=== PATIENT | male | born 1975 | race Caucasian/White ===

== ENCOUNTER 2017-01-02 15:25 | Inpatient (IN) | payer OTHER ==
--- NOTE | ~2017-01-02 | OP ---
Record Of Operation [facility] [address] [place]. [address] NAME: MARIA DEL ROSARIO PRIETO : 71 STATUS : ADM IN PAT#: [id number] AGE: 41 ADM/REG DATE : 01/02/17 MR#: [id number] REPORT SERV DATE: 01/13/17 DICTATED BY: DAVID GOLDSTEIN DATE: 01/10/17 REPORT STATUS : Draft TRANSCRIBED BY: MODJackelin DATE: 01/10/17 DATE OF PROCEDURE: 01/10/2017 PREOPERATIVE DIAGNOSES: 1. Coronary artery disease with unstable angina. 2. Acute systolic heart failure (ejection fraction of 40%). 3. Chronic kidney disease. 4. Hypertension. 5. Hypothyroidism. 6. Hypercholesterolemia. 7. Tobacco abuse. 8. Obesity. POSTOPERATIVE DIAGNOSES: 1. Coronary artery disease with unstable angina. 2. Acute systolic heart failure (ejection fraction of 40%). 3. Chronic kidney disease. 4. Hypertension. 5. Hypothyroidism. 6. Hypercholesterolemia. 7. Tobacco abuse. 8. Obesity. PROCEDURE PERFORMED: 1. Urgent coronary artery bypass grafting x5. Left internal mammary artery was sequenced to the second diagonal, and left anterior descending, reverse saphenous vein graft placed to the first diagonal, reverse saphenous vein graft placed to the second obtuse marginal, right internal mammary artery graft placed to the posterior descending artery. 2. Bilateral internal mammary artery harvest. 3. Endoscopic vein harvest, saphenous vein from the right thigh. 4. Transesophageal echocardiography. ASSISTANTS: Twan Rush and Ysabel Prabhakar. ANESTHESIA: General with Dr. Landry. ACCOUNT MANAGER RELIEF: Estevan Gonzalez M.D. INDICATIONS: This is a 41-year-old, hypertensive gentleman with a long history of smoking, who presented to the emergency room at [facility] with anginal-type symptoms. He reports dyspnea with exertion with this event. He developed the pain 3 days before presenting to the emergency room. He was admitted to the hospital and medically stabilized. He did rule out for myocardial infarction. He underwent a stress test that was determined intermediate risk. He underwent a cardiac catheterization, which demonstrated significant three-vessel coronary artery disease. We were asked to see the patient possible urgent Record Of Operation [facility] [address] [facility]. [address] NAME: MARIA DEL ROSARIO PRIETO : 71 STATUS : ADM IN PAT#: [id number] AGE: 41 ADM/REG DATE : 01/02/17 MR#: [id number] REPORT SERV DATE: 01/13/17 DICTATED BY: DAVID GOLDSTEIN DATE: 01/10/17 REPORT STATUS : Draft TRANSCRIBED BY: MODL DATE: 01/10/17 revascularization. Unfortunately, the patient had developed elevated creatinine after his cardiac catheterization and the patient was given two days of hydration to allow the kidney for full recovery. We discussed possible coronary artery bypass grafting with him and his significant other and after discussing the operation, indication, risks, they wished to proceed. FINDINGS AT OPERATION: 1. Cross-clamp time 81 minute, total pump time 95 minutes. 2. LAD was less than 1.5 mm mildly diseased vessel. A 2.5 mm LEIGH was anastomosed to it and an end-to-side fashion with good runoff. 3. The second diagonal was 1.5 mm and mildly diseased. A 2 mm left internal mammary artery was anastomosed in a [id number] fashion with good runoff. 4. The first diagonal was 2 mm moderately diseased. A 4 mm RSVG was anastomosed to it with good runoff. 5. The second obtuse marginal was 2 mm and mildly diseased. A 4 mm RSVG was anastomosed to it with good runoff. 6. The posterior descending artery was 1.75 mm moderately diseased. A 3 mm skeletonized right internal mammary artery was anastomosed to it with good runoff. 7. The vein quality was good and all grafts did have good Doppler signal at the end of the case. PATHOLOGIC SPECIMENS: None. DESCRIPTION OF PROCEDURE: The patient was brought to the operating suite where general anesthesia was induced and airway secured with an endotracheal tube. Lines secured by anesthesia. Matthews catheter was placed. The patient's chest, abdomen, groin, and legs were prepped with Hibiclens and ChloraPrep, and draped with Ioban sterile sheets. SOLANGE probe was placed by Dr. Landry and examination carried out in my attendance. The saphenous vein was harvested from the right thigh using endoscopic technique. Briefly, the vein was cut directly down upon through a 2 cm incision placed at the medial aspect of the right knee. Then, using VasoView trocars, the vessel was dissected from the surrounding subcutaneous tissue and fat. The side branches were identified, ligated, divided with cautery. Once adequate length of vein had been dissected, a counter incision made up in the groin and the vein was ligated, divided, and brought through the knee incision. The vein quality was good. The leg was made hemostatic and closed in layers of absorbable suture and skin closed in subcuticular fashion. Next, a midline sternal incision was made and the sternum opened with a saw. The left hemithorax elevated and the endothoracic fascia was incised. Side branch of the VERÓNICA were clipped and divided. Once the left mammary artery was completely dissected, the chest tube was placed in the left pleural cavity. Show retractor was then reversed and the right hemithorax was elevated. The right internal mammary artery was then harvested as a skeletonized graft. Briefly, we then sized the endothoracic fascia directly underneath the VERÓNICA. Then, using Puskas scissors, this incision and the fascia was extended cranially and caudally for the length of the mammary to be used. The mammary was then carefully dissected Record Of Operation [address] [place]. [address] NAME: MARIA DEL ROSARIO PRIETO : 71 STATUS : ADM IN PAT#: [id number] AGE: 41 ADM/REG DATE : 01/02/17 MR#: [id number] REPORT SERV DATE: 01/13/17 DICTATED BY: DAVID GOLDSTEIN DATE: 01/10/17 REPORT STATUS : Draft TRANSCRIBED BY: MODJackelin DATE: 01/10/17 away and side branches of this vessel were clipped and then divided with cautery. Once adequate length of the right internal mammary artery been dissected and freed up. The patient anticoagulated with heparin and a chest tube placed in the right pleural cavity. Then, the distal end of the VERÓNICA was clipped and divided. The VERÓNICA was directly dilated with papaverine solution. Next, the Rodolfo retractor was placed in the pericardium over the innominate vein. The diaphragm was T'd and tacked to the side of the chest wall. Cannulation pursestring sutures were placed and cannulation was carried out in routine manner. A retrograde cardioplegia cannula was placed in the coronary sinus. When all was in readiness, the patient was placed on cardiopulmonary bypass. Distal targets were marked out on the heart as described in the findings. Then, a heart support was placed. The aorta was crossclamped. Initial dose cold blood cardioplegia solution was given in a combination of antegrade and retrograde fashion and then in a retrograde manner following proximal anastomoses. Following the first dose of cardioplegia, the heart was positioned for the obtuse marginal graft. Arteriotomy was made. The vein graft anastomosed it with 7-0 Prolene. The vein graft was measured back to the left side of the ascending aorta where it divided. We then positioned the heart for the first diagonal graft. Another arteriotomy was made. The vein graft was trimmed and anastomosed to it with 7-0 Prolene. This vein graft was measured back to the left side of the ascending aorta, where it was divided. Next, proximal ends of the two vein grafts were anastomosed to 4.5 mm punch aortotomy with 6-0 Prolene. Another dose of cardioplegia was given and the heart was positioned for the PDA graft. The arteriotomy was made. The skeletonized right internal mammary artery graft was brought into the pericardial space through a notch in the pericardium near the SVC. Care was taken to avoid injury to the phrenic nerve. The right mammary had adequate length to reach the PDA. Arteriotomy was made in the right mammary vessel. Then, a right mammary was anastomosed to the PDA in an end-to-side fashion with a running suture of 8-0 Prolene. Following completion of anastomosis, Doppler confirmed excellent flow through this graft. Another dose of cardioplegia was given and warming was begun. We then positioned the heart for the second diagonal graft. The left internal mammary artery brought into the chest through a notch in the pericardium over the pulmonary artery. The left mammary was planned for sequential grafting. Arteriotomy was made in the second diagonal, and corresponding arteriotomy made at the side of the vein of the VERÓNICA graft. Then, a vzzq-dp-bony left VERÓNICA anastomosis was performed to the second diagonal, with a running suture of 8-0 Prolene. The endothoracic fascia was tacked to the epicardium. Arteriotomy was then made in the LAD more distally. The end of the VERÓNICA graft was then opened and anastomosed to the LAD and an end-to side fashion with a running suture of 8-0 Prolene. The endothoracic fascia was then tacked to the epicardium here also. The patient was placed in Trendelenburg and a final dose of warm blood cardioplegia was given in a retrograde fashion. Ventricular and atrial pacing wires were placed. Following the last dose of cardioplegia and deairing of the aorta, the aortic cross clamp was removed. The distal and proximal anastomoses were inspected and made hemostatic. Record Of Operation [facility] [address] [place]. [address] NAME: MARIA DEL ROSARIO PRIETO : 71 STATUS : ADM IN PAT#: [id number] AGE: 41 ADM/REG DATE : 01/02/17 MR#: [id number] REPORT SERV DATE: 01/13/17 DICTATED BY: DAVID GOLDSTEIN DATE: 01/10/17 REPORT STATUS : Draft TRANSCRIBED BY: MODL DATE: 01/10/17 Doppler demonstrated good flow through the grafts. The patient resumed a sinus rhythm spontaneously and ventilation was begun. When the heart demonstrated good contractility, it was allowed to fill and eject. When deairing was completed, the patient was taken out of Trendelenburg. The ascending aortic vent removed and these pursestring sutures tied and reinforced. The patient was then weaned from cardiopulmonary bypass with minimal inotropic support. The venous cannulas were removed and these pursestring sutures tied. SOLANGE examination demonstrated continued good ventricular function with no significant valvular pathology. Protamine was administered by Anesthesia and following a period of hemodynamic stability, the aortic cannula was removed and these pursestring sutures tied and reinforced. The patient continued to do well and chest was irrigated copiously with saline. Meticulous hemostasis was obtained. Hemasorb was placed along the cut edge of the sternum. Once hemostasis was assured, the pericardium was draped over the anterior surface of the heart and tacked into position. Doppler demonstrated good flow through the grafts following protamine administration. Then, chest tube was placed and sternum reapproximated with 8 sternal wires. The clavipectoral fascia and linea alba closed #1 Stratafix. Subcutaneous tissue was closed and skin closed in subcuticular fashion. The patient tolerated the procedure well. There were no complications. Sponge and needle counts were correct. DISPOSITION: The patient was left intubated, sedated, and transported to the intensive care unit in a stable condition. RICHIE/ZORAN David Goldstein M.D. / [id number] CC: Estevan Gonzalez M.D.
--- NOTE | ~2017-01-02 | HP ---
History And Physical [place] [id number] [facility] [place]. [address] NAME: MARIA DEL ROSARIO PRIETO : 71 STATUS : ADM Michaela PAT#: [id number] AGE: 41 ADM/REG DATE : 01/02/17 MR#: [id number] REPORT SERV DATE: 01/03/17 DICTATED BY: DATE: REPORT STATUS : Draft TRANSCRIBED BY: MODL DATE: 01/03/17 DATE OF ADMISSION: 01/02/2017 PRIMARY CARE PROVIDER: The patient reports he goes to [facility] in [place] for primary care needs including his prescriptions. CHIEF COMPLAINT: Chest pain and pressure. HISTORY OF PRESENT ILLNESS: This is a 41-year-old white male with three days of substernal chest pain, 4/10 while sitting, an 8 to 9/10 with exertion he reports. He also reports during his chest pain and pressure events that he is experiencing shortness of breath, palpitations, dizziness, and diaphoresis. He also reports that he developed left arm pain and numbness yesterday occurring along with his chest pain and pressure. He reports all of his symptoms have currently resolved and he has no complaints. He denies any chest pain, shortness of breath, palpitations, nausea, vomiting, or diaphoresis. The patient denies any personal history of myocardial infarction, stroke, DVT, or pulmonary embolus. The patient denies any recent fever or chills. No syncopal episodes. He denies any PND or orthopnea. PAST MEDICAL HISTORY: The patient reports hypertension, hypothyroidism, asthma, questionable emphysema, Raynaud disease. PAST SURGICAL HISTORY: He denies having any. SOCIAL HISTORY: The patient reports to have a lot of odd jobs. 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 He reports to be , with one child. He is a current smoker and smokes one pack per day and has smoked that much for 30 years. He reports to drink one day a week, usually about 12 cans of beer. He has a history of illicit drug use, LSD, crack cocaine times a couple years; he quit in 1997. He does use marijuana daily and his last joint was yesterday and he has used marijuana for 20 years. FAMILY HISTORY: He denies his mother having any cardiovascular history. His father has a history of congestive heart failure. REVIEW OF SYSTEMS: A 14-point review of systems was performed and significant for HPI. No other contributory diagnosis identified. ALLERGIES: NO KNOWN ALLERGIES. HOME MEDICATIONS: ProAir HFA two puffs inhalation every 4 hours p.r.n., Synthroid 44 mcg p.o. at bedtime, lisinopril 10 mg p.o. at bedtime, Zantac 150 mg p.o. at bedtime, Spiriva HandiHaler 1 capsule inhalation at bedtime. PHYSICAL EXAMINATION: History And Physical [address] [address] NAME: MARIA DEL ROSARIO PRIETO : 71 STATUS : ADM Michaela PAT#: [id number] AGE: 41 ADM/REG DATE : 01/02/17 MR#: [id number] REPORT SERV DATE: 01/03/17 DICTATED BY: DATE: REPORT STATUS : Draft TRANSCRIBED BY: ZORAN DATE: 01/03/17 VITAL SIGNS: Blood pressure 135/77, pulse 74, temperature 97.7, O2 saturation 96% on room air, respirations 18. GENERAL: Cooperative, in no apparent distress. HEENT: Head normocephalic, anicteric. Normal EOM. PERRLA. No xanthelasma. Nares patent. Moist mucous membranes. NECK: Trachea midline. No thyromegaly, JVD or bruits. RESPIRATORY: Clear to auscultation bilaterally anterior and posterior. Respirations even and unlabored. No wheezes, rhonchi or crackles. CARDIOVASCULAR: Regular rate and rhythm. No murmur, rub or gallop appreciated. No chest wall tenderness to palpation. ABDOMEN: Soft, nontender, nondistended, normal bowel sounds auscultated throughout. No masses or organomegaly. EXTREMITIES: No peripheral edema. DP/PT and radial pulses palpable bilaterally. No clubbing or cyanosis. SKIN: Warm, dry and intact. Normal turgor. No pallor or cyanosis. NEURO/PSYCH: Alert, oriented x3 with no acute distress. Affect appropriate to current situation. LABORATORY DATA: Troponin x3 less than 0.02. Sodium 140, potassium 3.6, BUN 16, creatinine 1.34, GFR 75, glucose 94, calcium 9.3, magnesium 2.2. White blood cell 7.8, hemoglobin 15.0, hematocrit 43.9, platelets 215. INR 1.0. PA and lateral chest x-ray, no acute cardiopulmonary processes radiographically evident. CTA of the chest shows lungs clear of acute infiltrate. There is no PE. There was some minor emphysematous changes in the upper lung pagan. The coronary system is not calcified. Ascending and descending thoracic aorta normal. EKG on 01/03/2017 showed sinus rhythm at 71 with a left axis, borderline RWP. nuclear monitoring technician shows sinus rhythm at 68, no ectopy. ASSESSMENT AND PLAN: 1. Substernal chest pain. The patient denies any chest pain. Currently, troponins x3 have been negative. He denies any arm pain, numbness. His cardiac risk factor is hypertension. We will keep the patient n.p.o. and plan an MPI today. If the stress test shows no ischemia or low risk, RN may discharge the patient home. If anything suggestive of ischemia, Cardiology referral will be initiated. 2. Hypertension, appears to be stable. Blood pressure 135/77. The patient is on the lisinopril. We will currently decrease it to 5 mg due to increased creatinine of 1.34. 3. Renal insufficiency. I have discussed with the patient his increased creatinine and lisinopril intake, the risks and benefits of taking lisinopril. I have instructed the patient to follow up with his PCP, whom he reports is from [facility]. He uses the [facility] for PCP and medication purposes. I have encouraged him to discuss further medication and his increased creatinine with his PCP there. 4. Hypothyroidism. I have discussed the importance of continued medication and getting his TSH checked by his PCP. The patient states that he had stopped his blood pressure and thyroid medications for 3 months and restarted about 2 weeks ago because of not History And Physical [address] [address] NAME: MARIA DEL ROSARIO PRIETO : 71 STATUS : ADM Michaela PAT#: [id number] AGE: 41 ADM/REG DATE : 01/02/17 MR#: [id number] REPORT SERV DATE: 01/03/17 DICTATED BY: DATE: REPORT STATUS : Draft TRANSCRIBED BY: MODL DATE: 01/03/17 having insurance. I have discussed the importance of taking medications as prescribed and attempting to see his PCP as scheduled. 5. Asthma. The patient denies any shortness of breath. Appears to be stable. He has his breathing treatments available he reports and I have discussed him following up with his PCP. EKS/MODL Gia Hall APN / [id number] CC: Kinsey Harden, JOBY, CAMERA REPAIR TECHNICIAN-BC
--- NOTE | ~2017-01-02 | DS ---
Discharge Summary [facility] [address] [place]. [address] NAME: MARIA DEL ROSARIO PRIETO : 71 STATUS : DIS IN PAT#: [id number] AGE: 41 ADM/REG DATE : 01/02/17 MR#: [id number] REPORT SERV DATE: 01/27/17 DICTATED BY: ESTEVAN MANCERA DATE: 01/27/17 REPORT STATUS : Draft TRANSCRIBED BY: ZORAN DATE: 01/27/17 Data Collection from hospitalization DISCHARGE DIAGNOSES: 1. Unstable angina. 2. Coronary artery disease, status post coronary artery bypass grafting. 3. Renal insufficiency. 4. Hypothyroidism. 5. Asthma. 6. Hypertension. 7. Hypercholesterolemia. 8. History of Raynaud's disease. 9. Marijuana use. 10.Tobacco use. CONSULTATIONS: 1. Efren Goldstein M.D. 2. Theresa Portillo. PROCEDURES: 1. Cardiac catheterization on 01/03/2017. 2. Urgent coronary artery bypass grafting x5 with LEIGH to the second diagonal and left anterior descending, reverse saphenous vein graft placed to the first diagonal, reverse saphenous vein graft placed to the second obtuse marginal, right internal mammary artery graft placed to the posterior descending artery, bilateral internal mammary artery harvest, endoscopic vein harvest of the saphenous vein from the right thigh. Transesophageal echocardiography on 01/10/2017. 3. CTA of the chest on 01/02/2017. 4. Myocardial perfusion imaging study on 01/03/2017. DISCHARGE MEDICATIONS: Lipitor 40 mg at bedtime, Coreg 6.25 mg twice a day, Plavix 75 mg daily, [place] 10/325 one tablet with every four hours as needed, Synthroid 44 mcg at bedtime, Prinivil 5 mg daily, Spiriva one capsule via inhaler at bedtime. CONDITION AT DISCHARGE: Stable. DISPOSITION: The patient was discharged home on a low-sodium, low-cholesterol, cardiac diet with activities as instructed. He would follow up with me on 02/12/2017, he would follow up with Reagan Oakley on 02/20/2017, he would follow up at [facility] one week following discharge. HOSPITAL COURSE: This is a 41-year-old man, who presented with about three days of substernal chest pain that was 4/10 while sitting and to 9/10 with exertion. He reports that he was to [facility] for primary care including his prescriptions. He reported during his chest pain and pressure events that he was experiencing shortness of breath, palpitations, dizziness, and diaphoresis. He also reported that he had some left arm pain and numbness that occurred along with his chest pain and pressure. He said all these symptoms had currently resolved at this time and he had no new complaints. He denied Discharge Summary [address] [place]. [address] NAME: MARIA DEL ROSARIO PRIETO : 71 STATUS : DIS IN PAT#: [id number] AGE: 41 ADM/REG DATE : 01/02/17 MR#: [id number] REPORT SERV DATE: 01/27/17 DICTATED BY: ESTEVAN MANCERA DATE: 01/27/17 REPORT STATUS : Draft TRANSCRIBED BY: ZORAN DATE: 01/27/17 any chest pain, shortness of breath, palpitations, nausea, vomiting, or diaphoresis at this time. He denies any personal history of myocardial infarction, stroke, or pulmonary embolus. A CTA of the chest showed lungs that are clear of acute infiltrate. There was no pulmonary embolus. There was some minor emphysematous changes in the upper lung pagan. The ascending and descending thoracic aorta were normal. Troponin x3 was less than 0.02. INR level was 1.0. Creatinine level was 1.34. He was admitted to the hospital at this time for further evaluation and treatment. Upon admission, he was held n.p.o. It was felt that he may need to undergo a myocardial perfusion imaging study, but the stress test showed no ischemia or low risk. He may be discharged home if there was anything suggestive of ischemia, then a Cardiology referral would be made. The patient's blood pressure appeared to be stable at this time. He was on lisinopril, this dose was currently decreased because of his elevated creatinine. He does have renal insufficiency. The patient was instructed to follow up with his primary care physician, whom he reports is from a [facility] physician. The patient also has hypothyroidism. We discussed the importance of continued medication and getting his TSH checked by his primary care physician. The patient said that he had stopped his blood pressure and thyroid medications for three months and then started it about two weeks prior to this admission because of not having insurance. The importance of taking his medications as prescribed and attempting to see his primary care physician as scheduled were discussed. His asthma appeared to be stable. The following day, a myocardial perfusion imaging study was performed. This demonstrated no ischemia. He had 7/10 chest tightness with stress. Post infusion, left ventricular ejection fraction was 45%. It was felt that the patient would need to undergo a cardiac catheterization. He was taken to the cardiac cath lab tech by Dr. Wahl where he underwent the above-mentioned procedure. He tolerated this well. There were no complications. Following this, he was seen by Dr. Efren Goldstein. His coronary arteriogram had demonstrated severe three-vessel coronary artery disease with lesions in the proximal, mid, and distal right coronary artery, left anterior descending, and first and second diagonal branches, and circumflex arteries. It was felt that he would need to undergo coronary artery bypass grafting. An echocardiogram was performed. On 01/04/2017, he had no further chest pain or shortness of breath. Echocardiogram was going to be checked. Norvasc was added. On 01/05/2017, his ejection fraction was 40% and there was global hypokinesis on the echocardiogram. Plan to be made for the coronary artery bypass graft procedure to be performed the following week. The patient was seen by Theresa Portillo regarding acute kidney injury versus chronic kidney disease. Creatinine had risen from 1.3 on the day of admission to 1.6. He did not receive any nephrotoxins, but he did receive two days of dye consecutively. He did have good urine output. He was felt to have acute kidney injury versus chronic kidney disease. Urine studies were going to be checked. IV fluids were being given. It was discussed with the patient that he had a mild-to- moderate risk of acute renal failure with bypass that was being planned. On 01/08/2017, creatinine level decreased to 1.4 with IV fluids. Plans were being made to proceed with surgery. He had no chest pain or shortness of breath. On 01/10/2017, the patient was taken to the operating room where he underwent the above-mentioned procedure. He tolerated this well. There were no complications. On postop day #1, he had been extubated and he had normal work of breathing. Pressors were being weaned as tolerated. The patient was felt to have stage 3 chronic kidney disease. Electrolyte protocol was in Discharge Summary [address] [place]. [address] NAME: MARIA DEL ROSARIO PRIETO : 71 STATUS : DIS IN PAT#: [id number] AGE: 41 ADM/REG DATE : 01/02/17 MR#: [id number] REPORT SERV DATE: 01/27/17 DICTATED BY: ESTEVAN MANCERA DATE: 01/27/17 REPORT STATUS : Draft TRANSCRIBED BY: MODL DATE: 01/27/17 place. Creatinine level was 1.17. We encouraged him to increase his mobility. His white count had increased to 22.6. O2 was being weaned. The Matthews catheter was also removed. He was encouraged to increase his activity. Chest x-ray showed left basilar atelectasis. On 01/13/2017, he was beginning to ambulate. His lungs were clear. He was in a normal sinus rhythm. Lopressor was changed to Coreg. He was evaluated by Physical Therapy. He had only trace lower extremity edema. He was encouraged to use incentive spirometry and EzPAP treatment. He was ambulating in the manzano. Chest tubes were removed. The next day, discharge planning was performed. His incisions looked okay. Lisinopril was added to his regimen. On 01/15/2017, he had no chest pain or shortness of breath. He said he felt well. He was afebrile. Discharge instructions were given. Due to his improved and stable condition, he was discharged home with the above-stated instructions. Information collected by: Daisy Fatima I submit the above information as my discharge summary. TG/ZORAN Estevan Mancera M.D. / [id number] CC: Cristy Odell FNP James Zellner, M.D.
--- NOTE | ~2017-01-02 | CN ---
Consultation Report [facility] [address] [place]. [address] NAME: MARIA DEL ROSARIO PRIETO : 71 STATUS : ADM IN PAT#: [id number] AGE: 41 ADM/REG DATE : 01/02/17 MR#: [id number] REPORT SERV DATE: 01/06/17 DICTATED BY: DAVID GOLDSTEIN DATE: 01/06/17 REPORT STATUS : Draft TRANSCRIBED BY: MODJackelin DATE: 01/06/17 DATE OF CONSULTATION: 01/03/2017 REASON FOR CONSULTATION: Coronary artery disease, consideration for coronary artery bypass grafting. CHIEF COMPLAINT: I had pain in my chest and left arm and shoulder. HISTORY OF PRESENT ILLNESS: This is a 41-year-old gentleman, smoker since age 13, who also smokes cigars and marijuana cigarettes. He reports that about three days prior to admission, he began to have some discomfort in his chest and left arm that was intermittent, waxing and waning. This persisted and worsened, and he then came to the emergency department. He also had associated shortness of breath, dizziness, diaphoresis, and palpitations. In the emergency department, his EKG showed normal sinus rhythm, and troponin I was not elevated. He did undergo myocardial perfusion imaging with SPECT, and this was positive for ischemia and graded intermediate-risk test. Followup coronary arteriogram on Friday demonstrated severe three-vessel coronary artery disease with lesions in the proximal, mid, and distal right coronary arteries, left anterior descending, and first and second diagonal branches, and circumflex arteries. We were asked to see for a possible urgent coronary artery bypass grafting and this was discussed with the patient and his in the room this morning. PRIOR MEDICAL HISTORY: Hypertension, hypothyroidism, asthma, possible emphysema, Raynaud disease, and cigarette smoking. SURGICAL HISTORY: None. ALLERGIES: NONE KNOWN. MEDICATIONS: Include ProAir HFA inhaler two puffs every 4 hours p.r.n., Synthroid 44 mcg p.o. at bedtime, Prinivil 10 mg p.o. at bedtime, Zantac 150 mg p.o. at bedtime, and Spiriva HandiHaler 1 cap inhaled at bedtime daily. FAMILY HISTORY: Father with congestive heart failure, mother without heart problems. SOCIAL HISTORY: He is , employed as a b2b sales executive. He smokes approximately a pack per day and has smoked since the age of 13. He uses marijuana cigarettes daily and he occasionally drinks beer. REVIEW OF SYSTEMS: Essentially negative other than that listed above. Specifically, he denies any history of stroke, TIA, or bleeding problems. Consultation Report [facility] [id number] [place]. [address] NAME: MARIA DEL ROSARIO PRIETO : 71 STATUS : ADM IN PAT#: [id number] AGE: 41 ADM/REG DATE : 01/02/17 MR#: [id number] REPORT SERV DATE: 01/06/17 DICTATED BY: DAVID GOLDSTEIN DATE: 01/06/17 REPORT STATUS : Draft TRANSCRIBED BY: ZORAN DATE: 01/06/17 PHYSICAL EXAMINATION: GENERAL: He is a pleasant white male, in no acute distress. VITAL SIGNS: His weight is 98.42 kg, height 185.42 cm. Blood pressure is 116/75; temperature 97.8; pulse 74 and regular; respirations 18, regular and unlabored; saturation 93% on room air. HEENT: Normocephalic, atraumatic. Pupils are equal, round, and reactive to light and accommodation. Sclerae are clear, conjunctivae pink. Oral and buccal mucosa are stained brown, no lesions or masses. Teeth are in good condition. Mallampati class 3 airway. NECK: Supple, no restricted range of motion, no carotid bruits, no jugular venous distention. CHEST: Clear to auscultation. No use of accessory muscles. No chest wall tenderness, no deformity. BREASTS: Not examined. CV: Regular rate and rhythm without murmur or rub. He has palpable and symmetric central and peripheral pulses, no clubbing, no cyanosis, no edema, no lower extremity varicosities. ABDOMEN: Soft, nontender, with normoactive bowel sounds. No hepatosplenomegaly. /RECTAL: Declined. MUSCULOSKELETAL: No kyphoscoliosis, no asymmetry. NEUROLOGIC: He is alert, oriented to day, date, place, and situation. Speech is clear and fluent, no focal deficits, no tremors. SKIN, HAIR, AND NAILS: Good hygiene; no lesions, masses, or rashes. DATA: His coronary arteriogram which I reviewed today showing severe three-vessel flow- limiting coronary artery disease. His EKG shows normal sinus rhythm. Echocardiogram shows ejection fraction 40%, no significant valvulopathy. His labs show WBCs 9.2, hemoglobin 16.5 g, hematocrit 46.9% platelets 219,000. Electrolyte profile: Sodium is 137, potassium 4.3, chloride 101, CO2 of 27, BUN 17, and creatinine is elevated at 1.43. IMPRESSION: Three-vessel flow-limiting coronary artery disease in a patient who presented with severe chest pain. In reviewing his films, he would be a candidate for surgical revascularization. We talked with him about that today, the indications, benefits, and serious risks of surgery including things like bleeding, infection, blood transfusions and their attendant risks, damage to the kidneys including kidney failure and dialysis, damage to the liver or the lungs, heart attack, stroke, abnormal heart rhythm, mediastinitis, and even . The patient indicates his understanding and is willing to proceed. Using Society of Thoracic Surgeons database for risk prediction, risk of mortality was predicted 0.795%, any morbidity or mortality of 12.439%, this was shared with the patient and his family. PLAN: Surgery later this admission, and appreciate the opportunity to participate in this gentleman's care. DICTATED BY: Reagan Oakley N.P. Consultation Report [address] [address] NAME: MARIA DEL ROSARIO PRIETO : 71 STATUS : ADM IN [facility]#: [id number] AGE: 41 ADM/REG DATE : 01/02/17 MR#: [id number] REPORT SERV DATE: 01/06/17 DICTATED BY: DAVID GOLDSTEIN DATE: 01/06/17 REPORT STATUS : Draft TRANSCRIBED BY: ZORAN DATE: 01/06/17 MSJackelin/ZORAN David Goldstein M.D. / [id number] CC: Cristy Odell
--- NOTE | ~2017-01-02 | CN ---
Consultation Report [facility] [address] [place]. [address] NAME: MARIA DEL ROSARIO CHATMAN : 71 STATUS : ADM IN PAT#: [id number] AGE: 41 ADM/REG DATE : 01/02/17 MR#: [id number] REPORT SERV DATE: 01/07/17 DICTATED BY: DATE: REPORT STATUS : Draft TRANSCRIBED BY: MODL DATE: 01/07/17 CONSULTATION DATE OF CONSULTATION: REASON FOR CONSULTATION: Acute kidney injury versus CKD. HISTORY OF PRESENT ILLNESS: Mr. Chatman is a 41-year-old white male, who denies any history of kidney disease in the past. He does have a history of kidney stones. He has a history of hypertension, this has been well controlled on his usual medicines at home. He presented to the hospital with chest pain had a CTA of the chest one day, followed by heart catheterization the next day, was found to have multivessel coronary artery disease, in need of bypass. His creatinine has gone from 1.3 on admission to 1.4 to 1.6, and we were asked to see him with our plans for bypass tomorrow. He denies any dysuria or hematuria. No problems with edema. No shortness of breath, chest pain, tightness, or pressure. I do not see any nephrotoxins on his medications, but he did get the two days of dye consecutively. He has a good urine output. PAST MEDICAL HISTORY: Now includes coronary artery disease, but positive for hypertension, hypothyroidism, asthma, tobacco abuse, Raynaud, and kidney stones. FAMILY MEDICAL HISTORY: Coronary artery disease. No kidney disease. ALLERGIES: NONE. MEDICATIONS: Ascorbic acid, atorvastatin, amiodarone, Coreg, Pepcid, levothyroxine, nicotine patch, tiotropium, and zinc. SOCIAL HISTORY: He is . Smokes a pack of cigarettes per day. Occasional alcohol and daily marijuana. REVIEW OF SYSTEMS: 12-point review of systems obtained and negative with the exception that in HPI. PHYSICAL EXAMINATION: VITAL SIGNS: Temp 97.3, blood pressure 121/77, pulse 81, respiratory rate 18, O2 saturation is 95%. GENERAL: This is a pleasant, cooperative, white male. He is awake, alert, and oriented x3. No acute distress. Answers questions appropriately. HEENT: Normocephalic, atraumatic. Conjunctivae clear. Sclerae anicteric. Pupils are equal and round. Oral mucosa is moist. NECK: Supple. Carotids are without bruits. Neck veins flat. No lymphadenopathy. LUNGS: Respirations are even and unlabored. Breath sounds are clear to auscultation. HEART: Rate is regular. No murmur, rub, or gallop. Consultation Report [facility] [id number] [place]. [address] NAME: MARIA DEL ROSARIO CHATMAN : 71 STATUS : ADM IN [facility]#: [id number] AGE: 41 ADM/REG DATE : 01/02/17 MR#: [id number] REPORT SERV DATE: 01/07/17 DICTATED BY: DATE: REPORT STATUS : Draft TRANSCRIBED BY: MODL DATE: 01/07/17 ABDOMEN: Soft and nontender. Bowel sounds active. No masses or hepatosplenomegaly. No bruits. No CVA tenderness. BACK: Within normal limits. EXTREMITIES: No edema, cyanosis, or clubbing. SKIN: Warm, dry, and intact. No unusual rashes or skin lesions. NEURO: No focal deficits. Mood and affect, pleasant appropriate. PERTINENT LABS AND X-RAYS: Sodium 137, potassium 4.4, chloride 102, CO2 of 27, BUN of 17, creatinine 1.6, calcium of 9.5. WBCs 9, H and H of 16 and 46, platelets 219,000. IMPRESSION: 1. Acute kidney injury versus chronic kidney disease. 2. Coronary artery disease. 3. Hypertension. 4. Tobacco abuse. 5. History of kidney stones. PLAN: Check urine studies. I agree with IV fluids. We will follow labs and I's and O's. Discussed with him [id number] risk of acute renal failure with bypass and that is being planned for tomorrow. We will follow along with you. Thank you for the consultation. DIANA/ZORAN EMERALD Rahman / [id number] CC: Estevan Gonzalez M.D.
[2017-01-02 16:52] LABS: BASOPHILS 0.9 %; BASOPHILS ABSOLUTE 0.07 10/3/uL (0.0-0.16); EOSINOPHILS 1.5 %; EOSINOPHILS ABSOLUTE 0.12 10/3/uL (0.0-0.53); ER CBC TAT 0 Hrs 07 Mins; HEMATOCRIT 43.9 % (40.0-51.0); IMMATURE GRANULOCYTES 0.1 %; IMMATURE GRANULOCYTES ABSOLUTE 0.01 10/3/uL (0.0-0.11); LYMPHOCYTES 29.7 %; LYMPHOCYTES ABSOLUTE 2.31 10/3/uL (0.67-4.30); MEAN CORPUS HGB CONC 34.2 g/dL (32.0-36.0); MEAN CORPUSCULAR HEMOGLOB 31.5 pg (26.0-34.0); MEAN PLATELET VOLUME 9.2 fL (9.2-13.0); MONOCYTES 7.2 %; MONOCYTES ABSOLUTE 0.56 10/3/uL (0.21-1.20); NEUTROPHILS 60.6 %; PLATELET COUNT 215 10/3/uL (150-400); RBC DISTRIBUTION WIDTH 13.8 % (12.0-16.0); RED CELL COUNT 4.76 10/6/uL (4.7-6.1); WHITE BLOOD CELLS 7.8 10/3/uL (4.5-10.5)
[2017-01-02 16:53] LABS: MANUAL DIFF NO %; MEAN CORPUSCULAR VOLUME 92.2 fL (80-100)
[2017-01-02 16:56] LABS: PARTIAL THROMBO TIME 25.2 SEC (22.5-37.2); PROTIME (NOT ORD) 13.1 SEC (12.0-14.5)
[2017-01-02 17:06] LABS: BUN (BLOOD UREA NITROGEN) 16 MG/DL (6-23); CALCIUM, SERUM 9.3 MG/DL (8.5-10.4); CHEST PAIN PROFILE TAT 0 Hrs 21 Mins; CHLORIDE, SERUM 105 MMOL/L (96-112); CO2 (CARBON DIOXIDE) 30 MMOL/L (24-34); CREATININE 1.34 MG/DL (0.70-1.30); GFR AFRICAN AMERICAN 75 ML/MIN (>=60); GFR NON AFRICAN AMERICAN 64 ML/MIN (>=60); GLUCOSE, SERUM 94 MG/DL (60-99); POTASSIUM, SERUM 3.6 MMOL/L (3.5-5.3); SODIUM, SERUM 140 MMOL/L (135-148); TROPONIN I <0.02 NG/ML (<0.05)
[2017-01-02] MEDS ORDERED: PRIN10 PO (18:31)
[2017-01-02] MEDS ORDERED: SPIRIVA INH (18:31)
[2017-01-02] MEDS ORDERED: PROAIR HFA INH (18:31)
[2017-01-02] MEDS ORDERED: ZANTAC150 MG PO (18:31)
[2017-01-02] MEDS ORDERED: SYN88 PO (18:31)
[2017-01-06 02:10] LABS: BASOPHILS ABSOLUTE 0.09 10/3/uL (0.0-0.16); EOSINOPHILS 3.1 %; EOSINOPHILS ABSOLUTE 0.29 10/3/uL (0.0-0.53); HEMATOCRIT 46.9 % (40.0-51.0); HEMOGLOBIN 16.5 g/dL (13.6-17.8); IMMATURE GRANULOCYTES 0.2 %; IMMATURE GRANULOCYTES ABSOLUTE 0.02 10/3/uL (0.0-0.11); LYMPHOCYTES ABSOLUTE 3.32 10/3/uL (0.67-4.30); MEAN CORPUS HGB CONC 35.2 g/dL (32.0-36.0); MEAN CORPUSCULAR HEMOGLOB 32.1 pg (26.0-34.0); MEAN CORPUSCULAR VOLUME 91.2 fL (80-100); MEAN PLATELET VOLUME 9.6 fL (9.2-13.0); MONOCYTES 7.3 %; MONOCYTES ABSOLUTE 0.67 10/3/uL (0.21-1.20); NEUTROPHILS 52.4 %; NEUTROPHILS ABSOLUTE 4.84 10/3/uL (2.02-8.40); PLATELET COUNT 219 10/3/uL (150-400); RBC DISTRIBUTION WIDTH 13.7 % (12.0-16.0); RED CELL COUNT 5.14 10/6/uL (4.7-6.1); WHITE BLOOD CELLS 9.2 10/3/uL (4.5-10.5)
[2017-01-06 02:11] LABS: MANUAL DIFF NO %
[2017-01-06 02:35] LABS: BUN (BLOOD UREA NITROGEN) 17 MG/DL (6-23); CALCIUM, SERUM 9.3 MG/DL (8.5-10.4); CHLORIDE, SERUM 101 MMOL/L (96-112); CO2 (CARBON DIOXIDE) 27 MMOL/L (24-34); CREATININE 1.43 MG/DL (0.70-1.30); GFR AFRICAN AMERICAN 69 ML/MIN (>=60); GFR NON AFRICAN AMERICAN 60 ML/MIN (>=60); GLUCOSE, SERUM 100 MG/DL (60-99); POTASSIUM, SERUM 4.3 MMOL/L (3.5-5.3); SODIUM, SERUM 137 MMOL/L (135-148)
[2017-01-07 05:59] LABS: BUN (BLOOD UREA NITROGEN) 17 MG/DL (6-23); CALCIUM, SERUM 9.6 MG/DL (8.5-10.4); CHLORIDE, SERUM 102 MMOL/L (96-112); CO2 (CARBON DIOXIDE) 29 MMOL/L (24-34); CREATININE 1.61 MG/DL (0.70-1.30); GFR AFRICAN AMERICAN 60 ML/MIN (>=60); GFR NON AFRICAN AMERICAN 52 ML/MIN (>=60); GLUCOSE, SERUM 106 MG/DL (60-99); POTASSIUM, SERUM 4.4 MMOL/L (3.5-5.3); SODIUM, SERUM 137 MMOL/L (135-148)
[2017-01-07 16:02] LABS: ASCORBIC ACID (UR NOT ORDER) 40 (NEG); BILIRUBIN, URINE NEGATIVE (NEG); KETONE, URINE NEGATIVE (NEG); LEUKOCYTE ESTERASE(NOT OR NEG (NEG); WBC (NOT ORDERED) (RFLEX) < 1 (0-5)
[2017-01-08 04:28] LABS: ALLENS TEST Pos; BE (BASE EXCESS) 2.6 MEQ/L (0 +/- 2.5); CARBOXYHEMOGLOBIN 0.8 % (0-3); HCO3 (ACTUAL BICARBONATE) 26.5 MEQ/L (23-27); INSTRUMENT SERIAL # 8083; METHEMOGLOBIN 0.3 % (0-3); O2 CONTENT 21.3 VOL% (18-24); OPERATOR ID 35390; PCO2 (CO2 TENSION) 39 MMHG (35-45); PO2 (O2 TENSION) 78 MMHG (79-93); SAMPLE Arterial; pH 7.45 (7.37-7.43)
[2017-01-08 05:21] LABS: BASOPHILS 0.7 %; HEMATOCRIT 48.6 % (40.0-51.0); HEMOGLOBIN 16.8 g/dL (13.6-17.8); IMMATURE GRANULOCYTES 0.4 %; IMMATURE GRANULOCYTES ABSOLUTE 0.06 10/3/uL (0.0-0.11); LYMPHOCYTES 23.1 %; LYMPHOCYTES ABSOLUTE 3.53 10/3/uL (0.67-4.30); MEAN CORPUS HGB CONC 34.6 g/dL (32.0-36.0); MEAN CORPUSCULAR HEMOGLOB 31.8 pg (26.0-34.0); MEAN PLATELET VOLUME 9.8 fL (9.2-13.0); MONOCYTES ABSOLUTE 1.22 10/3/uL (0.21-1.20); NEUTROPHILS 65.8 %; NEUTROPHILS ABSOLUTE 10.05 10/3/uL (2.02-8.40); PLATELET COUNT 235 10/3/uL (150-400); RBC DISTRIBUTION WIDTH 13.5 % (12.0-16.0); RED CELL COUNT 5.28 10/6/uL (4.7-6.1)
[2017-01-08 05:22] LABS: PROTIME (NOT ORD) 13.2 SEC (12.0-14.5)
[2017-01-08 05:26] LABS: MANUAL DIFF NO %; WHITE BLOOD CELLS 15.3 10/3/uL (4.5-10.5)
[2017-01-08 05:38] LABS: % IRON SAT 14 % (20-50); ALBUMIN 3.9 G/DL (3.5-5.0); ALKALINE PHOSPHATASE 72 U/L (45-117); BUN (BLOOD UREA NITROGEN) 16 MG/DL (6-23); CALCIUM, SERUM 9.6 MG/DL (8.5-10.4); CHLORIDE, SERUM 104 MMOL/L (96-112); CO2 (CARBON DIOXIDE) 30 MMOL/L (24-34); CREATININE 1.44 MG/DL (0.70-1.30); GFR AFRICAN AMERICAN 68 ML/MIN (>=60); GFR NON AFRICAN AMERICAN 59 ML/MIN (>=60); GLOBULIN 3.8 G/DL (2.5-4.1); IRON BINDING CAPACITY 442 MCG/DL (250-450); IRON, SERUM 61 MCG/DL (35-150); PHOSPHORUS, SERUM 4.3 MG/DL (2.5-4.5); POTASSIUM, SERUM 4.3 MMOL/L (3.5-5.3); SGOT(AST) 19 U/L (5-40); SGPT(ALT) 41 U/L (5-65); SODIUM, SERUM 138 MMOL/L (135-148); TOTAL BILIRUBIN 0.4 MG/DL (0-1.2); TOTAL PROTEIN 7.7 G/DL (6.0-8.5)
[2017-01-08 05:40] LABS: DIRECT BILIRUBIN < 0.1 MG/DL (0.0-0.4); GLUCOSE, SERUM 82 MG/DL (60-99); INDIRECT BILIRUBIN(NOT ORDER) 0.3 MG/DL (0.1-0.9)
[2017-01-09 06:57] LABS: ALBUMIN 3.4 G/DL (3.5-5.0); BUN (BLOOD UREA NITROGEN) 14 MG/DL (6-23); CHLORIDE, SERUM 105 MMOL/L (96-112); CO2 (CARBON DIOXIDE) 28 MMOL/L (24-34); GFR AFRICAN AMERICAN 71 ML/MIN (>=60); GFR NON AFRICAN AMERICAN 61 ML/MIN (>=60); GLUCOSE, SERUM 82 MG/DL (60-99); PHOSPHORUS, SERUM 4.4 MG/DL (2.5-4.5); POTASSIUM, SERUM 4.2 MMOL/L (3.5-5.3); SODIUM, SERUM 141 MMOL/L (135-148)
[2017-01-09 09:05] LABS: BASOPHILS 0.6 %; BASOPHILS ABSOLUTE 0.07 10/3/uL (0.0-0.16); EOSINOPHILS 2.7 %; HEMATOCRIT 41.9 % (40.0-51.0); HEMOGLOBIN 14.3 g/dL (13.6-17.8); IMMATURE GRANULOCYTES 0.2 %; IMMATURE GRANULOCYTES ABSOLUTE 0.02 10/3/uL (0.0-0.11); LYMPHOCYTES 22.4 %; LYMPHOCYTES ABSOLUTE 2.49 10/3/uL (0.67-4.30); MANUAL DIFF NO %; MEAN CORPUS HGB CONC 34.1 g/dL (32.0-36.0); MEAN CORPUSCULAR HEMOGLOB 31.4 pg (26.0-34.0); MEAN CORPUSCULAR VOLUME 91.9 fL (80-100); MEAN PLATELET VOLUME 9.9 fL (9.2-13.0); MONOCYTES ABSOLUTE 0.89 10/3/uL (0.21-1.20); NEUTROPHILS 66.1 %; NEUTROPHILS ABSOLUTE 7.33 10/3/uL (2.02-8.40); PLATELET COUNT 208 10/3/uL (150-400); RBC DISTRIBUTION WIDTH 14.1 % (12.0-16.0); RED CELL COUNT 4.56 10/6/uL (4.7-6.1); WHITE BLOOD CELLS 11.1 10/3/uL (4.5-10.5)
[2017-01-10 03:28] LABS: BASOPHILS 0.8 %; BASOPHILS ABSOLUTE 0.09 10/3/uL (0.0-0.16); EOSINOPHILS 2.9 %; EOSINOPHILS ABSOLUTE 0.34 10/3/uL (0.0-0.53); HEMATOCRIT 41.8 % (40.0-51.0); HEMOGLOBIN 14.4 g/dL (13.6-17.8); IMMATURE GRANULOCYTES 0.2 %; IMMATURE GRANULOCYTES ABSOLUTE 0.02 10/3/uL (0.0-0.11); LYMPHOCYTES 29.7 %; LYMPHOCYTES ABSOLUTE 3.43 10/3/uL (0.67-4.30); MEAN CORPUS HGB CONC 34.4 g/dL (32.0-36.0); MEAN CORPUSCULAR HEMOGLOB 31.7 pg (26.0-34.0); MEAN CORPUSCULAR VOLUME 92.1 fL (80-100); MEAN PLATELET VOLUME 9.6 fL (9.2-13.0); MONOCYTES 8.8 %; MONOCYTES ABSOLUTE 1.02 10/3/uL (0.21-1.20); NEUTROPHILS 57.6 %; NEUTROPHILS ABSOLUTE 6.64 10/3/uL (2.02-8.40); PLATELET COUNT 209 10/3/uL (150-400); RBC DISTRIBUTION WIDTH 13.6 % (12.0-16.0); RED CELL COUNT 4.54 10/6/uL (4.7-6.1); WHITE BLOOD CELLS 11.5 10/3/uL (4.5-10.5)
[2017-01-10 03:29] LABS: MANUAL DIFF NO %
[2017-01-10 03:35] LABS: INTERNATIONAL NORMAL RATI 1.2 UNITS (-); PROTIME (NOT ORD) 14.6 SEC (12.0-14.5)
[2017-01-10 03:40] LABS: PARTIAL THROMBO TIME 114.1 SEC (22.5-37.2)
[2017-01-10 03:45] LABS: ALBUMIN 3.3 G/DL (3.5-5.0); ALKALINE PHOSPHATASE 61 U/L (45-117); BUN (BLOOD UREA NITROGEN) 13 MG/DL (6-23); CALCIUM, SERUM 9.2 MG/DL (8.5-10.4); CHLORIDE, SERUM 106 MMOL/L (96-112); CO2 (CARBON DIOXIDE) 26 MMOL/L (24-34); CREATININE 1.27 MG/DL (0.70-1.30); DIRECT BILIRUBIN < 0.1 MG/DL (0.0-0.4); GFR AFRICAN AMERICAN 80 ML/MIN (>=60); GFR NON AFRICAN AMERICAN 69 ML/MIN (>=60); GLUCOSE, SERUM 112 MG/DL (60-99); INDIRECT BILIRUBIN(NOT ORDER) 0.1 MG/DL (0.1-0.9); PHOSPHORUS, SERUM 4.6 MG/DL (2.5-4.5); SGOT(AST) 20 U/L (5-40); SGPT(ALT) 38 U/L (5-65); SODIUM, SERUM 140 MMOL/L (135-148); TOTAL BILIRUBIN 0.2 MG/DL (0-1.2); TOTAL PROTEIN 6.6 G/DL (6.0-8.5)
[2017-01-10 12:44] LABS: BE (BASE EXCESS) -2.3 MEQ/L (0 +/- 2.5); CARBOXYHEMOGLOBIN 0.3 % (0-3); HCO3 (ACTUAL BICARBONATE) 22.6 MEQ/L (23-27); HEMOBLOGIN CONTENT 13.1 G/DL (14-18); INSTRUMENT SERIAL # 11843; METHEMOGLOBIN 0.5 % (0-3); MODE SIMV; O2 CONTENT 18.3 VOL% (18-24); OPERATOR ID 13624; PCO2 (CO2 TENSION) 40 MMHG (35-45); PO2 (O2 TENSION) 163 MMHG (79-93); SAMPLE Arterial; TIDAL VOLUME 800 ML; pH 7.38 (7.37-7.43)
[2017-01-10 12:52] LABS: HEMOGLOBIN 12.5 g/dL (13.6-17.8)
[2017-01-10 12:54] LABS: HEMATOCRIT 35.9 % (40.0-51.0)
[2017-01-10 13:04] LABS: BUN (BLOOD UREA NITROGEN) 12 MG/DL (6-23); CALCIUM, SERUM 9.4 MG/DL (8.5-10.4); CHLORIDE, SERUM 108 MMOL/L (96-112); CO2 (CARBON DIOXIDE) 27 MMOL/L (24-34); CREATININE 1.61 MG/DL (0.70-1.30); GFR AFRICAN AMERICAN 60 ML/MIN (>=60); GFR NON AFRICAN AMERICAN 52 ML/MIN (>=60); GLUCOSE, SERUM 106 MG/DL (60-99); POTASSIUM, SERUM 3.9 MMOL/L (3.5-5.3); SODIUM, SERUM 142 MMOL/L (135-148)
[2017-01-10 13:12] LABS: INTERNATIONAL NORMAL RATI 1.6 UNITS (-); PARTIAL THROMBO TIME 29.4 SEC (22.5-37.2)
[2017-01-10 13:13] LABS: PROTIME (NOT ORD) 18.6 SEC (12.0-14.5)
[2017-01-10 17:25] LABS: BE (BASE EXCESS) -1.8 MEQ/L (0 +/- 2.5); CARBOXYHEMOGLOBIN 0.4 % (0-3); DEVICE HFNC; HCO3 (ACTUAL BICARBONATE) 23.9 MEQ/L (23-27); HEMOBLOGIN CONTENT 14.6 G/DL (14-18); INSTRUMENT SERIAL # 11843; METHEMOGLOBIN 0.5 % (0-3); O2 CONTENT 19.2 VOL% (18-24); OPERATOR ID 13624; PCO2 (CO2 TENSION) 44 MMHG (35-45); PO2 (O2 TENSION) 75 MMHG (79-93); SAMPLE Arterial; pH 7.35 (7.37-7.43)
[2017-01-10 19:21] LABS: HEMATOCRIT 38.4 % (40.0-51.0); HEMOGLOBIN 13.4 g/dL (13.6-17.8)
[2017-01-10 19:34] LABS: BUN (BLOOD UREA NITROGEN) 15 MG/DL (6-23); CALCIUM, SERUM 8.3 MG/DL (8.5-10.4); CHLORIDE, SERUM 110 MMOL/L (96-112); CO2 (CARBON DIOXIDE) 26 MMOL/L (24-34); CREATININE 1.26 MG/DL (0.70-1.30); GFR AFRICAN AMERICAN 80 ML/MIN (>=60); GFR NON AFRICAN AMERICAN 69 ML/MIN (>=60); GLUCOSE, SERUM 97 MG/DL (60-99); POTASSIUM, SERUM 4.5 MMOL/L (3.5-5.3); SODIUM, SERUM 141 MMOL/L (135-148)
[2017-01-11 01:37] LABS: HEMATOCRIT 37.4 % (40.0-51.0)
[2017-01-11 01:48] LABS: BUN (BLOOD UREA NITROGEN) 16 MG/DL (6-23); CALCIUM, SERUM 8.3 MG/DL (8.5-10.4); CHLORIDE, SERUM 107 MMOL/L (96-112); CO2 (CARBON DIOXIDE) 26 MMOL/L (24-34); CREATININE 1.17 MG/DL (0.70-1.30); GFR AFRICAN AMERICAN 88 ML/MIN (>=60); GFR NON AFRICAN AMERICAN 76 ML/MIN (>=60); GLUCOSE, SERUM 90 MG/DL (60-99); POTASSIUM, SERUM 4.5 MMOL/L (3.5-5.3); SODIUM, SERUM 139 MMOL/L (135-148)
[2017-01-11 04:56] LABS: BASOPHILS 0.1 %; BASOPHILS ABSOLUTE 0.02 10/3/uL (0.0-0.16); EOSINOPHILS 0 %; HEMATOCRIT 35.8 % (40.0-51.0); HEMOGLOBIN 12.6 g/dL (13.6-17.8); IMMATURE GRANULOCYTES 0.3 %; IMMATURE GRANULOCYTES ABSOLUTE 0.07 10/3/uL (0.0-0.11); LYMPHOCYTES 5.3 %; LYMPHOCYTES ABSOLUTE 1.17 10/3/uL (0.67-4.30); MEAN CORPUS HGB CONC 35.2 g/dL (32.0-36.0); MEAN CORPUSCULAR HEMOGLOB 31.9 pg (26.0-34.0); MEAN CORPUSCULAR VOLUME 90.6 fL (80-100); MEAN PLATELET VOLUME 9.6 fL (9.2-13.0); MONOCYTES 5.1 %; MONOCYTES ABSOLUTE 1.13 10/3/uL (0.21-1.20); NEUTROPHILS 89.2 %; NEUTROPHILS ABSOLUTE 19.85 10/3/uL (2.02-8.40); PLATELET COUNT 158 10/3/uL (150-400); RBC DISTRIBUTION WIDTH 13.9 % (12.0-16.0); RED CELL COUNT 3.95 10/6/uL (4.7-6.1)
[2017-01-11 04:57] LABS: MANUAL DIFF NO %; WHITE BLOOD CELLS 22.2 10/3/uL (4.5-10.5)
[2017-01-11 05:12] LABS: ALBUMIN 3.2 G/DL (3.5-5.0); BUN (BLOOD UREA NITROGEN) 17 MG/DL (6-23); CHLORIDE, SERUM 106 MMOL/L (96-112); CO2 (CARBON DIOXIDE) 26 MMOL/L (24-34); CREATININE 1.17 MG/DL (0.70-1.30); GFR AFRICAN AMERICAN 88 ML/MIN (>=60); GFR NON AFRICAN AMERICAN 76 ML/MIN (>=60); PHOSPHORUS, SERUM 4.2 MG/DL (2.5-4.5); POTASSIUM, SERUM 4.4 MMOL/L (3.5-5.3); SODIUM, SERUM 138 MMOL/L (135-148)
[2017-01-11 05:14] LABS: GLUCOSE, SERUM 117 MG/DL (60-99)
[2017-01-11 14:17] LABS: HEMATOCRIT 36.2 % (40.0-51.0); HEMOGLOBIN 12.5 g/dL (13.6-17.8)
[2017-01-12 06:17] LABS: BASOPHILS 0.1 %; BASOPHILS ABSOLUTE 0.03 10/3/uL (0.0-0.16); EOSINOPHILS 0 %; EOSINOPHILS ABSOLUTE 0.01 10/3/uL (0.0-0.53); HEMATOCRIT 35.9 % (40.0-51.0); HEMOGLOBIN 12.3 g/dL (13.6-17.8); IMMATURE GRANULOCYTES 0.4 %; IMMATURE GRANULOCYTES ABSOLUTE 0.08 10/3/uL (0.0-0.11); LYMPHOCYTES 9.7 %; LYMPHOCYTES ABSOLUTE 2.19 10/3/uL (0.67-4.30); MEAN CORPUS HGB CONC 34.3 g/dL (32.0-36.0); MEAN CORPUSCULAR HEMOGLOB 31.6 pg (26.0-34.0); MEAN CORPUSCULAR VOLUME 92.3 fL (80-100); MEAN PLATELET VOLUME 9.8 fL (9.2-13.0); MONOCYTES 8.8 %; MONOCYTES ABSOLUTE 1.98 10/3/uL (0.21-1.20); NEUTROPHILS ABSOLUTE 18.29 10/3/uL (2.02-8.40); PLATELET COUNT 188 10/3/uL (150-400); RBC DISTRIBUTION WIDTH 14.3 % (12.0-16.0); RED CELL COUNT 3.89 10/6/uL (4.7-6.1); WHITE BLOOD CELLS 22.6 10/3/uL (4.5-10.5)
[2017-01-12 06:18] LABS: MANUAL DIFF NO %
[2017-01-12 06:22] LABS: INTERNATIONAL NORMAL RATI 1.2 UNITS (-)
[2017-01-12 06:23] LABS: PROTIME (NOT ORD) 14.6 SEC (12.0-14.5)
[2017-01-12 06:33] LABS: CALCIUM, SERUM 8.5 MG/DL (8.5-10.4); CHLORIDE, SERUM 103 MMOL/L (96-112); CO2 (CARBON DIOXIDE) 29 MMOL/L (24-34); CREATININE 1.12 MG/DL (0.70-1.30); GFR AFRICAN AMERICAN 93 ML/MIN (>=60); GFR NON AFRICAN AMERICAN 80 ML/MIN (>=60); GLUCOSE, SERUM 131 MG/DL (60-99); POTASSIUM, SERUM 4.8 MMOL/L (3.5-5.3); SODIUM, SERUM 136 MMOL/L (135-148)
[2017-01-12 06:34] LABS: BUN (BLOOD UREA NITROGEN) 23 MG/DL (6-23)
[2017-01-13 09:54] LABS: BASOPHILS 0.2 %; BASOPHILS ABSOLUTE 0.03 10/3/uL (0.0-0.16); EOSINOPHILS 0.5 %; EOSINOPHILS ABSOLUTE 0.09 10/3/uL (0.0-0.53); HEMATOCRIT 41.3 % (40.0-51.0); HEMOGLOBIN 13.8 g/dL (13.6-17.8); IMMATURE GRANULOCYTES 0.5 %; IMMATURE GRANULOCYTES ABSOLUTE 0.09 10/3/uL (0.0-0.11); LYMPHOCYTES 12.7 %; LYMPHOCYTES ABSOLUTE 2.21 10/3/uL (0.67-4.30); MANUAL DIFF NO %; MEAN CORPUS HGB CONC 33.4 g/dL (32.0-36.0); MEAN CORPUSCULAR HEMOGLOB 31.7 pg (26.0-34.0); MEAN CORPUSCULAR VOLUME 94.7 fL (80-100); MEAN PLATELET VOLUME 9.6 fL (9.2-13.0); MONOCYTES 6.9 %; NEUTROPHILS 79.2 %; NEUTROPHILS ABSOLUTE 13.73 10/3/uL (2.02-8.40); PLATELET COUNT 213 10/3/uL (150-400); RED CELL COUNT 4.36 10/6/uL (4.7-6.1); WHITE BLOOD CELLS 17.4 10/3/uL (4.5-10.5)
[2017-01-13 10:06] LABS: BUN (BLOOD UREA NITROGEN) 24 MG/DL (6-23); CHLORIDE, SERUM 99 MMOL/L (96-112); CO2 (CARBON DIOXIDE) 32 MMOL/L (24-34); CREATININE 1.13 MG/DL (0.70-1.30); GFR AFRICAN AMERICAN 92 ML/MIN (>=60); GFR NON AFRICAN AMERICAN 79 ML/MIN (>=60); GLUCOSE, SERUM 150 MG/DL (60-99); POTASSIUM, SERUM 4.5 MMOL/L (3.5-5.3); SODIUM, SERUM 136 MMOL/L (135-148)
[2017-01-14 05:52] LABS: BASOPHILS 0.2 %; BASOPHILS ABSOLUTE 0.03 10/3/uL (0.0-0.16); EOSINOPHILS ABSOLUTE 0.18 10/3/uL (0.0-0.53); HEMATOCRIT 40.6 % (40.0-51.0); HEMOGLOBIN 14.1 g/dL (13.6-17.8); IMMATURE GRANULOCYTES 0.6 %; IMMATURE GRANULOCYTES ABSOLUTE 0.11 10/3/uL (0.0-0.11); LYMPHOCYTES 13.9 %; LYMPHOCYTES ABSOLUTE 2.43 10/3/uL (0.67-4.30); MEAN CORPUS HGB CONC 34.7 g/dL (32.0-36.0); MEAN CORPUSCULAR HEMOGLOB 31.5 pg (26.0-34.0); MEAN PLATELET VOLUME 9.8 fL (9.2-13.0); MONOCYTES 10.8 %; NEUTROPHILS 73.5 %; NEUTROPHILS ABSOLUTE 12.88 10/3/uL (2.02-8.40); PLATELET COUNT 226 10/3/uL (150-400); RBC DISTRIBUTION WIDTH 13.9 % (12.0-16.0); RED CELL COUNT 4.48 10/6/uL (4.7-6.1); WHITE BLOOD CELLS 17.5 10/3/uL (4.5-10.5)
[2017-01-14 05:56] LABS: BUN (BLOOD UREA NITROGEN) 24 MG/DL (6-23); CALCIUM, SERUM 8.9 MG/DL (8.5-10.4); CHLORIDE, SERUM 100 MMOL/L (96-112); CO2 (CARBON DIOXIDE) 28 MMOL/L (24-34); CREATININE 0.97 MG/DL (0.70-1.30); GFR AFRICAN AMERICAN 110 ML/MIN (>=60); GFR NON AFRICAN AMERICAN 95 ML/MIN (>=60); POTASSIUM, SERUM 4.2 MMOL/L (3.5-5.3); SODIUM, SERUM 136 MMOL/L (135-148)
[2017-01-14 05:58] LABS: GLUCOSE, SERUM 102 MG/DL (60-99)
[2017-01-14 06:08] LABS: MEAN CORPUSCULAR VOLUME 90.6 fL (80-100)
[2017-01-14 06:09] LABS: MANUAL DIFF NO %
[2017-01-15 05:58] LABS: BASOPHILS 0.3 %; BASOPHILS ABSOLUTE 0.04 10/3/uL (0.0-0.16); EOSINOPHILS 1.8 %; EOSINOPHILS ABSOLUTE 0.27 10/3/uL (0.0-0.53); HEMATOCRIT 40.7 % (40.0-51.0); HEMOGLOBIN 14.3 g/dL (13.6-17.8); IMMATURE GRANULOCYTES 0.9 %; IMMATURE GRANULOCYTES ABSOLUTE 0.13 10/3/uL (0.0-0.11); LYMPHOCYTES 15.8 %; LYMPHOCYTES ABSOLUTE 2.39 10/3/uL (0.67-4.30); MANUAL DIFF NO %; MEAN CORPUS HGB CONC 35.1 g/dL (32.0-36.0); MEAN CORPUSCULAR VOLUME 91.1 fL (80-100); MEAN PLATELET VOLUME 9.8 fL (9.2-13.0); MONOCYTES 9.9 %; NEUTROPHILS 71.3 %; NEUTROPHILS ABSOLUTE 10.78 10/3/uL (2.02-8.40); PLATELET COUNT 273 10/3/uL (150-400); RBC DISTRIBUTION WIDTH 13.5 % (12.0-16.0); RED CELL COUNT 4.47 10/6/uL (4.7-6.1); WHITE BLOOD CELLS 15.1 10/3/uL (4.5-10.5)
[2017-01-15 06:09] LABS: BUN (BLOOD UREA NITROGEN) 24 MG/DL (6-23); CHLORIDE, SERUM 104 MMOL/L (96-112); CO2 (CARBON DIOXIDE) 27 MMOL/L (24-34); CREATININE 1.06 MG/DL (0.70-1.30); GFR AFRICAN AMERICAN 99 ML/MIN (>=60); GFR NON AFRICAN AMERICAN 86 ML/MIN (>=60); GLUCOSE, SERUM 118 MG/DL (60-99); POTASSIUM, SERUM 4.4 MMOL/L (3.5-5.3); SODIUM, SERUM 137 MMOL/L (135-148)
[2017-01-15] MEDS ORDERED: COREG6 PO (07:12)
[2017-01-15] MEDS ORDERED: LIPITOR40 PO (07:12)
[2017-01-15] MEDS ORDERED: PLAVIX PO (07:12)
[2017-01-15] MEDS ORDERED: PRIN5 PO (07:13)
[2017-01-15] MEDS ORDERED: NORCO1 TAB PO (07:13)
== END 2017-01-15 13:12 | disposition home or self-care (01) | DRG 233 ==
LOC: ER 15:25 → CDU1 18:26 → 6NO 01-05 09:23 → CVICU 01-10 11:53 → 5NO 01-11 16:35
PROVIDERS: Anesthesiology; Clinical Nurse Specialist; Emergency Medicine; Internal Medicine Cardiovascular Disease; Nurse Practitioner; Nurse Practitioner Family; Thoracic Surgery (Cardiothoracic Vascular Surgery)
PROC: 4A023N7 Measurement of Cardiac Sampling and Pressure, Left Heart, Percutaneous Approach (ICD-10-PCS; principal; 2017-01-03)
PROC: 021209W Bypass Coronary Artery, Three Arteries from Aorta with Autologous Venous Tissue, Open Approach (ICD-10-PCS; 2017-01-03)
PROC: B2111ZZ Fluoroscopy of Multiple Coronary Arteries using Low Osmolar Contrast (ICD-10-PCS; 2017-01-03)
PROC: B2151ZZ Fluoroscopy of Left Heart using Low Osmolar Contrast (ICD-10-PCS; 2017-01-03)
PROC: 02100Z8 Bypass Coronary Artery, One Artery from Right Internal Mammary, Open Approach (ICD-10-PCS; 2017-01-03)
PROC: 02100Z9 Bypass Coronary Artery, One Artery from Left Internal Mammary, Open Approach (ICD-10-PCS; 2017-01-10)
PROC: 06BP4ZZ Excision of Right Saphenous Vein, Percutaneous Endoscopic Approach (ICD-10-PCS; 2017-01-10)
PROC: 5A1221Z Performance of Cardiac Output, Continuous (ICD-10-PCS; 2017-01-10)
PROC: B246ZZ4 Ultrasonography of Right and Left Heart, Transesophageal (ICD-10-PCS; 2017-01-10)
DX: I25.110 Atherosclerotic heart disease of native coronary artery with unstable angina pectoris (principal); I50.21 Acute systolic (congestive) heart failure; N17.9 Acute kidney failure, unspecified; N18.3 Chronic kidney disease, stage 3 (moderate); I13.0 Hypertensive heart and chronic kidney disease with heart failure and stage 1 through stage 4 chronic kidney disease, or unspecified chronic kidney disease; Z82.49 Family history of ischemic heart disease and other diseases of the circulatory system; F17.210 Nicotine dependence, cigarettes, uncomplicated; E03.9 Hypothyroidism, unspecified; E78.00 Pure hypercholesterolemia, unspecified; E66.9 Obesity, unspecified; Z68.29 Body mass index [BMI] 29.0-29.9, adult; J45.909 Unspecified asthma, uncomplicated
CPT/HCPCS: 31720; 36415; 36600; 71010; 71020; 71275; 78452; 80048; 80053; 80061; 80069; 80076; 81001; 82248; 82330; 82803; 82805; 82947; 82962; 83036; 83540; 83550; 83735; 84132; 84295; 84484; 85014; 85018; 85025; 85347; 85610; 85730; 86850; 86900; 86901; 86920; 87641; 93005; 93017; 93312; 93320; 93325; 93458; 94002; 94640; 94660; 94770; 97161-GP; 99152; 99285; A9270-GY; A9502; C1713; C1769; C1887; C1894; C8929; C9113; J0153; J0690; J1644; J1940; J2150; J2250; J2370; J2405; J2440; J2720; J2765; J2795; J2930; J3010; J3475; J3480; P9045; P9047; Q9957; Q9967